=== PATIENT | female | born 1995 | race Caucasian/White ===

== ENCOUNTER 2017-09-11 22:20 | Emergency (ER) | payer OTHER ==
[2017-09-11 22:51] VITALS: BP 126/69; PULSE 75; RESP 18; TEMP 98.4; O2SAT 99
--- NOTE | 2017-09-11 22:58 | ED PDOC ---
HPI: Eye Injury/Pain Time Seen by Provider: 09/11/17 22:51 Chief Complaint (Nursing): Eye Problem History Per: Patient Additional Complaint(s): Pt. states she has been unable to remove the contact from her R eye. Pt. states she's had contact lens on since 1400. Denies pain, visual changes, trauma, light sensitivity. Past Medical History Reviewed: Historical Data, Nursing Documentation, Vital Signs Vital Signs: Last Vital Signs Temp 98.4 F 09/11/17 22:49 Pulse 75 09/11/17 22:49 Resp 18 09/11/17 22:49 BP 126/69 09/11/17 22:49 Pulse Ox 99 09/11/17 22:49 - Medical History PMH: No Chronic Diseases - Surgical History Surgical History: No Surg Hx - Family History Family History: States: No Known Family Hx - Allergies Allergies/Adverse Reactions: Allergies Allergy/AdvReac Type Severity Reaction Status Date / Time No Known Allergies Allergy Verified 09/11/17 22:49 Review of Systems ROS Statement: Except As Marked, All Systems Reviewed And Found Negative Physical Exam - Physical Exam Appears: Positive for: Well, Non-toxic, No Acute Distress Skin: Positive for: Normal Color, Warm. Negative for: Rash Eye Exam: Positive for: Normal appearance, EOMI, PERRL - ECG O2 Sat by Pulse Oximetry: 99 Procedures - Time-Out Type of Procedure: Removal of contact lens Site of Procedure: R eye Correct Patient (with visual ID + MR# on ID Band): Yes Correct Procedure: Yes PA/Tech: [place] - Eye Procedure Alcaine Drops Administered: No Eye FB Removal: other (removed contacts manually) Progress: Post removal examination: PERRL, no hyphema, EOMI without pain; pt. reports no FB sensation or pain to the eye Disposition - Clinical Impression Clinical Impression: Contact lens stuck - Patient ED Disposition Is Patient to be Admitted: No - Disposition Referrals: Emir Valdez MD [Staff Provider] - Disposition: Routine/Home Disposition Time: 22:55 Condition: IMPROVED Additional Instructions: Follow up with Dr. Valdez, eye doctor, for further evaluation. Return to ED immediately if symptoms worsen. Instructions: Contact Lens Care Print Language: NAMIBIAN
== END 2017-09-11 23:06 | disposition home or self-care (01) ==
LOC: H.ER 22:20
DX: H18.829 Corneal disorder due to contact lens, unspecified eye (principal)